=== PATIENT | male | born 1965 | race African-American/Black ===

== ENCOUNTER 2018-09-08 01:58 | Emergency (ER) | payer SELFPAY ==
[~2018-09-08] VITALS: Ht 177.8 cm; Wt 131.1 kg
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
[2018-09-08] MEDS ORDERED: oxyCODONE/APAP 5/325 1 TAB TABLET PO ONE (05:30)
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
[2018-09-08] MEDS ORDERED: CYCL10TA2 PO (06:13)
[2018-09-08] MEDS ORDERED: HYDR-971 PO (06:13)
[2018-09-08 06:20] VITALS: BP 230/115
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
== END 2018-09-08 06:25 | disposition home or self-care (01) ==
LOC: ER 01:58
DX: S16.1XXA Strain of muscle, fascia and tendon at neck level, initial encounter (principal); S39.012A Strain of muscle, fascia and tendon of lower back, initial encounter; S20.212A Contusion of left front wall of thorax, initial encounter; S80.01XA Contusion of right knee, initial encounter; E11.40 Type 2 diabetes mellitus with diabetic neuropathy, unspecified; I10 Essential (primary) hypertension; Z88.8 Allergy status to other drugs, medicaments and biological substances; V49.69XA Unspecified car occupant injured in collision with other motor vehicles in traffic accident, initial encounter; Y93.89 Activity, other specified; Y92.412 Parkway as the place of occurrence of the external cause; Y99.8 Other external cause status
CPT/HCPCS: 71101; 72100; 72125; 73562; 99284